=== PATIENT | female | born 1990 | race Caucasian/White ===

== ENCOUNTER 2016-11-30 20:24 | Inpatient (IN) | payer OTHER ==
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
--- NOTE | ~2016-11-30 | HP ---
Unit #: [id number] #: [id number] Patient: KAYLIE WOODALL [id number] [place] [address] [id number] I MR#: [id number] NAME: KAYLIE WOODALL ROOM: [facility] Age: 26 Sex: F Admission Date: 12/01/2016 : 1990 Attending Physician: Darrin Walker M.D. Admitting Physician: Darrin Walker M.D. Primary Care Physician: Primary Care Physician No HISTORY AND PHYSICAL HISTORY OF PRESENT ILLNESS Kaylie is a 26 year old admitted to [facility] with depression and verbalizing wanting to hurt herself. PAST MEDICAL HISTORY 1. IBS. 2. Obesity. PAST SURGICAL HISTORY Appendectomy. ALLERGIES No known drug allergies. SOCIAL HISTORY Smokes 1 pack per day. Denies alcohol and illicit drug use. FAMILY HISTORY Medically noncontributory. REVIEW OF SYSTEMS CONSTITUTIONAL: No fever or chills. HEENT: Denies any sore throat, ear pain or runny nose. CARDIOVASCULAR: Denies chest pain, irregular heart rhythm or palpitations. CHEST: Denies shortness of breath or cough. No hemoptysis. GASTROINTESTINAL: Denies nausea, vomiting, diarrhea or chronic constipation. ENDOCRINE: Denies history of increased thirst or urination. No recent significant weight loss or gain. GENITOURINARY: Denies dysuria, frequency, or hematuria. SKIN: Denies any rashes. HEMATOLOGIC: Denies history of increased bleeding or bruising. MUSCULOSKELETAL: Denies any hot, swollen joints. No generalized muscle pain. NEUROLOGIC: Denies problems with vision or speech. No frequent, severe headaches. No numbness, tingling or weakness in any extremities. Denies loss of bladder or bowel control. CURRENT MEDICATIONS 1. Minipress 1 mg q.h.s. 2. Zoloft 100 mg q.h.s. 3. Trileptal 300 mg t.i.d. 4. Motrin p.r.n. Unit #: [id number] #: [id number] Patient: KAYLIE WOODALL 5. Milk of Magnesia p.r.n. 6. Maalox p.r.n. 7. Tylenol p.r.n. PHYSICAL EXAMINATION GENERAL: Alert, obese, in no apparent distress. VITAL SIGNS: Blood pressure 100/50, heart rate 66, respirations 16, temperature 98.6. WEIGHT: 160. HEIGHT: 5 feet 4 inches. SKIN: Warm and dry without rash or lesion. HEENT: Normocephalic. TMs not viewed. Oral and nasal passages clear. Conjunctivae clear. PERRLA. EOMs intact. NECK: Supple without lymphadenopathy or thyromegaly. HEART: Regular rate and rhythm without murmur. LUNGS: Clear. ABDOMEN: Soft, nontender. : Not done. EXTREMITIES: No evidence of cyanosis, clubbing or edema. Moves all without focal deficit. NEUROLOGICAL: Grossly within normal limits. Cranial Nerves: II: Visual garland are intact. III, IV AND : Extraocular movements are intact. Pupils are equal, round and reactive to light. V: Facial sensation is grossly normal. VII: Facial movements and expression are normal. VIII: Auditory acuity grossly intact. IX, X: Uvula is midline. Phonation is normal. XI: Patient shrugs shoulders and turns head normally. XII: Tongue protrudes in the midline. Sensory and Motor Function: Sensory and motor sensation is grossly normal. Motor: moves all extremities well. Coordination: Gait is normal. Deep Tendon Reflexes: Intact. IMPRESSION Psychiatric admission. RECOMMENDATIONS PSYCHIATRIC: Per psychiatrist. MEDICAL: See no contraindications to participate in facility's activities. MEDICAL PROGNOSIS Good. MEDICAL CONDITION Stable. Dictated by... Aide Persaud P.A.-C. for Norbert Vu/eliana TD: 12/01/2016 19:00 JOB #: [id number] Unit #: [id number] #: [id number] Patient: KAYLIE WOODALL HISTORY AND PHYSICAL Page 1 of 1 X Aide Persaud HISTORY AND PHYSICAL
--- NOTE | ~2016-11-30 | DS ---
Unit #: [id number] #: [id number] Patient: HEBERT WOODALL [id number] [facility] [address] [place] [address] [id number] I MR#: [id number] NAME: HEBERT WOODALL ROOM: [facility] Age: 26 Sex: F Admission Date: 12/01/2016 : 1990 Discharge Date: 12/03/2016 Attending Physician: Darrin Walker M.D. Primary Care Physician: Primary Care Physician No DISCHARGE SUMMARY REASON FOR ADMISSION Hebert is a 26-year-old woman with a previous history of mood disorder, who reports increasing lability, hopelessness, irritability, and suicidal ideation with multiple plans. She was admitted for stabilization. DIAGNOSTIC STUDIES LABORATORY RESULTS: Please see hospital chart. HOSPITAL COURSE The patient was admitted and her Zoloft was increased to 100 mg at bedtime with the addition of Minipress for nightmares. Trileptal was continued unchanged. Her physical examination was unremarkable. She tolerated her medication with no significant adverse side effects and did participate in some psychotherapy groups and activities. She was referred to [facility] for increased access to psychotherapy, and she says that she felt safe at the time of discharge. DISCHARGE DIAGNOSES AXIS I: Major depression. AXIS II: Borderline personality traits. AXIS III: Irritable bowel syndrome and obesity. AXIS IV: AXIS V: DISCHARGE INSTRUCTIONS Follow up with Agatha. DISCHARGE MEDICATIONS Zoloft 100 mg daily for depression, Trileptal 300 mg b.i.d. for mood stability, and Minipress 1 mg bedtime for nightmares. CONDITION AT DISCHARGE Improved. PROGNOSIS Fair to good. DIET AND ACTIVITY Per primary care doctor. Dictated by... Unit #: [id number] #: [id number] Patient: HEBERT WOODALL Darrin Walker M.D. [facility]/modl TD: 12/18/2016 06:18 JOB #: [id number] DISCHARGE SUMMARY Page 1 of 1 X Darrin Walker MD DISCHARGE SUMMARY
[2016-12-01 09:37] LABS: BASOPHIL% 0.5 % (0-2.5); EOSINOPHIL% 0.1 % (0.0-7.0); HEMATOCRIT 36.1 % (35.0-45.0); HEMOGLOBIN 11.8 gm/dL (12.0-16.0); LYMPHOCYTE# 1.8 X10e3 (1.0-3.5); LYMPHOCYTE% 27.5 % (17.0-45.0); MEAN CORPUSCULAR HEMOGLOBIN 31.1 PG (28-34); MEAN CORPUSCULAR HGB CONC 32.7 g/dL (30-36); MEAN PLATELET VOLUME 8.2 FL (6.5-11.5); MONOCYTE# 0.6 X10e3 (0-1.0); MONOCYTE% 9.4 % (3.0-12.0); NEUTROPHIL% 62.5 % (40-75); PLATELET COUNT 243 X10e3 (140-420); RED CELL DISTRIBUTION WIDTH 13.9 % (11.0-15.5); WHITE BLOOD COUNT 6.4 X10e3 (4.0-10.5)
[2016-12-01 09:44] LABS: ALBUMIN SERUM 3.4 g/dL (3.5-5.0); BILIRUBIN,TOTAL 0.2 mg/dL (0.2-2.0); BUN/CREATININE RATIO 21.66; CALCIUM SERUM 8.7 mg/dL (8.4-10.2); CREATININE SERUM 0.6 mg/dL (0.6-1.4); GLOM FILT RATE Estimated 125.8 mL/min (>60); POTASSIUM 4.1 mmol/L (3.5-5.1); PROTEIN TOTAL SERUM 6.2 g/dL (6.0-8.3)
[2016-12-01 09:51] LABS: DIFF IND NO
== END 2016-12-03 12:50 | DRG 881 ==
LOC: P1E 12-01 03:10
PROVIDERS: Psychiatry & Neurology Psychiatry
DX: F32.9 Major depressive disorder, single episode, unspecified (principal)
CPT/HCPCS: 80053; 84703; 85025

== ENCOUNTER 2017-01-28 02:00 | Inpatient (IN) | payer OTHER ==
--- NOTE | ~2017-01-28 | HP ---
Unit #: [id number] #: [id number] Patient: KAYLIE WOODALL [id number] [place] [address] [id number] I MR#: [id number] NAME: KAYLIE WOODALL ROOM: [facility] Age: 26 Sex: F Admission Date: 01/28/2017 : 1990 Attending Physician: Darrin Walker M.D. Admitting Physician: Darrin Walker M.D. Primary Care Physician: Primary Care Physician No HISTORY AND PHYSICAL HISTORY OF PRESENT ILLNESS Kaylie is a 26 year old admitted to [address] [place] [address] with depression and verbalizing wanting to hurt herself. PAST MEDICAL HISTORY 1. IBS. 2. Obesity. PAST SURGICAL HISTORY Appendectomy. ALLERGIES No known drug allergies. SOCIAL HISTORY Smokes 1 pack per day. Denies alcohol and illicit drug use. FAMILY HISTORY Medically noncontributory. REVIEW OF SYSTEMS CONSTITUTIONAL: No fever or chills. HEENT: Denies any sore throat, ear pain or runny nose. CARDIOVASCULAR: Denies chest pain, irregular heart rhythm or palpitations. CHEST: Denies shortness of breath or cough. No hemoptysis. GASTROINTESTINAL: Denies nausea, vomiting, diarrhea or chronic constipation. ENDOCRINE: Denies history of increased thirst or urination. No recent significant weight loss or gain. GENITOURINARY: Denies dysuria, frequency, or hematuria. SKIN: Denies any rashes. HEMATOLOGIC: Denies history of increased bleeding or bruising. MUSCULOSKELETAL: Denies any hot, swollen joints. No generalized muscle pain. NEUROLOGIC: Denies problems with vision or speech. No frequent, severe headaches. No numbness, tingling or weakness in any extremities. Denies loss of bladder or bowel control. CURRENT MEDICATIONS 1. Minipress 1 mg q.h.s. 2. Trileptal 300 mg b.i.d. 3. Milk of Magnesia p.r.n. 4. Maalox p.r.n. Unit #: [id number] #: [id number] Patient: KAYLIE WOODALL 5. Tylenol p.r.n. 6. Nicotine patch 14 mg daily. 7. Zoloft 100 mg daily. PHYSICAL EXAMINATION GENERAL: Alert, obese, in no apparent distress. VITAL SIGNS: Blood pressure 100/62, heart rate 80, respirations 16, temperature 98.6. WEIGHT: 160. HEIGHT: 5 feet 4 inches. SKIN: Warm and dry without rash or lesion. HEENT: Normocephalic. TMs not viewed. Oral and nasal passages clear. Conjunctivae clear. PERRLA. EOMs intact. NECK: Supple without lymphadenopathy or thyromegaly. HEART: Regular rate and rhythm without murmur. LUNGS: Clear. ABDOMEN: Soft, nontender. : Not done. EXTREMITIES: No evidence of cyanosis, clubbing or edema. Moves all without focal deficit. NEUROLOGICAL: Grossly within normal limits. Cranial Nerves: II: Visual garland are intact. III, IV AND : Extraocular movements are intact. Pupils are equal, round and reactive to light. V: Facial sensation is grossly normal. VII: Facial movements and expression are normal. VIII: Auditory acuity grossly intact. IX, X: Uvula is midline. Phonation is normal. XI: Patient shrugs shoulders and turns head normally. XII: Tongue protrudes in the midline. Sensory and Motor Function: Sensory and motor sensation is grossly normal. Motor: moves all extremities well. Coordination: Gait is normal. Deep Tendon Reflexes: Intact. IMPRESSION Psychiatric admission. RECOMMENDATIONS PSYCHIATRIC: Per psychiatrist. MEDICAL: See no contraindication to participate in facility's activities. MEDICAL PROGNOSIS Good. MEDICAL CONDITION Stable. Dictated by... Aide Persaud P.A.-C. for Norbert Vu/eliana TD: 01/28/2017 18:59 JOB #: [id number] Unit #: [id number] #: [id number] Patient: KAYLIE WOODALL HISTORY AND PHYSICAL Page 1 of 1 X Aide Persaud HISTORY AND PHYSICAL
--- NOTE | ~2017-01-28 | PN ---
Unit #: [id number] #: [id number] Patient: KAYLIE WOODALL [id number] [facility] [address] [place] [address] [id number] I MR#: [id number] NAME: KAYLIE WOODALL ROOM: [facility] Age: 26 Sex: F Admission Date: 01/28/2017 : 1990 Attending Physician: Darrin Walker M.D. Admitting Physician: Darrin Walker M.D. Primary Care Physician: Primary Care Physician Pam COOLEY PROGRESS NOTES DATE 01/31/2017 DISCUSSION Kaylie is showing improvement today. She is tolerating increase Zoloft with no adverse side effects. She is alert and fully oriented. Memory and concentration are fair. Thought processes are goal directed with no active psychosis. She does continue to report some suicidal ideation but feels that she is better today. Liver functions were mildly elevated but otherwise laboratory studies are normal. ASSESSMENT PTSD, chronic. PLAN Continue current treatment plan anticipating discharge in the near future. Dictated by... Norbert Chapa/pasquale TD: 02/05/2017 02:25 JOB #: [id number] [facility] PROGRESS NOTES Page 1 of 1 X Darrin Walker MD PROGRESS NOTE
--- NOTE | ~2017-01-28 | DS ---
Unit #: [id number] #: [id number] Patient: KAYLIE WOODALL [id number] [facility] [address] [place] [address] [id number] I MR#: [id number] NAME: KAYLIE WOODALL ROOM: [facility] Age: 26 Sex: F Admission Date: 01/28/2017 : 1990 Discharge Date: 02/01/2017 Attending Physician: Darrin Walker M.D. Primary Care Physician: Primary Care Physician No DISCHARGE SUMMARY REASON FOR ADMISSION Kaylie is a 26-year-old woman, with a history of depression, PTSD, and some borderline personality traits. She reports that despite compliance with medication and psychotherapy at [facility] she has been increasingly depressed, hopeless, and upset over some recent events. She was unable to contract for safety and was admitted for stabilization. DIAGNOSTIC STUDIES Laboratory data, liver functions were mildly elevated less than twice normal otherwise laboratory studies were within normal limits. HOSPITAL COURSE Kaylie was admitted and placed on suicide precautions. Her Zoloft twas increased to 150 mg daily and other medications were continued. She participated appropriately in unit groups and activities, and her mood gradually improved. She had minimal psychosocial issues during the assessment and stated that she wished to follow up at [facility] as she had done before. On the date of discharge she was able to contract for safety outside of the hospital. DISCHARGE DIAGNOSES [place] I PTSD, chronic. Major depression. [place] II Borderline personality traits. [place] III IBS. Mild obesity. [place] IV [place] V INSTRUCTIONS TO PATIENT The patient is to follow up with [facility] and [facility]. DISCHARGE MEDICATIONS 1. Zoloft 150 mg daily for depression 2. Minipress 1 mg at bedtime for nightmares 3. Trileptal 300 mg twice daily for mood stability CONDITION AT DISCHARGE Improved. PROGNOSIS [id number]. Unit #: [id number] #: [id number] Patient: KAYLIE WOODALL DIET AND ACTIVITY Per primary care doctor. Dictated by... Darrin Walker M.D. ALBA/royer TD: 02/05/2017 07:48 JOB #: [id number] DISCHARGE SUMMARY Page 1 of 1 X Darrin Walker MD X DISCHARGE SUMMARY
--- NOTE | ~2017-01-28 | PA ---
Unit #: [id number] #: [id number] Patient: KAYLIE RAMEY [id number] [facility] [address] [place] [address] [id number] I MR#: [id number] NAME: KAYLIE RAMEY ROOM: [facility] Age: 26 Sex: F Admission Date: 01/28/2017 : 1990 Date of Assessment: Attending Physician: Darrin Walker M.D. Admitting Physician: Darrin Walker M.D. Primary Care Physician: Primary Care Physician No PSYCHIATRIC ASSESSMENT DATE OF SERVICE 01/29/2017. INFORMANTS The patient reliable; [facility], reliable; [facility], reliable. CHIEF COMPLAINT Suicidal ideation. HISTORY OF PRESENT ILLNESS Kaylie Ramey is a 26-year-old woman who reports increasing stress due to her brother's illness and recent of a friend. She had increasing suicidal ideation with a plan to hang herself and could not contract for safety outside of the hospital. She was admitted for stabilization. PAST PSYCHIATRIC HISTORY Two previous admissions to this facility for diagnosis of PTSD, major depression, and borderline personality traits. FAMILY PSYCHIATRIC HISTORY There is an extensive family history of psychiatric illness, but the patient could not be more specific. SOCIAL HISTORY The patient is single and lives with roommate. 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 PAST MEDICAL HISTORY History of obesity and irritable bowel syndrome. MEDICATIONS Please see MAR. ALLERGIES No known medication allergies. SUBSTANCE USE HISTORY None reported. MENTAL STATUS EXAMINATION Kaylie presented as a mildly disheveled woman, who appeared her stated age. She was cooperative with the examination. Her speech was spontaneous and easily understood. Musculoskeletal examination was calm. Unit #: [id number] #: [id number] Patient: KAYLIE RAMEY Her mood was depressed with a congruent affect. She was alert and fully oriented. Her memory and concentration were intact. Her thought processes were logical with no active psychosis. She reported ongoing suicidal ideation and could not contract for safety outside of the hospital. Her insight and judgment were fair. Her fund of knowledge and abstraction were fair. ASSETS AND LIABILITIES Assets; the patient knows local resources and has current caregivers. Liabilities; include recent decompensation. ADMITTING DIAGNOSES AXIS I: Posttraumatic stress disorder, chronic; major depressive disorder. AXIS II: Borderline personality traits. AXIS III: Obesity, irritable bowel syndrome. AXIS IV: AXIS V: PSYCHIATRIC PLAN The patient was admitted and placed on suicide precautions. Her home medications will be restarted with an increase in Zoloft to 150 mg daily. Baseline laboratory studies and physical examination will be ordered and reviewed. TREATMENT GOALS Resolution of SI, improvement in insight, and improvement in coping skills. DISCHARGE PLANNING Follow up with [facility]. ESTIMATED LENGTH OF STAY 5 days. Dictated by... Norbert Chapa/donald TD: 02/05/2017 15:50 JOB #: [id number] PSYCHIATRIC ASSESSMENT Page 1 of 1 X Darrin Walker MD X PSYCHIATRIC ASSESSMENT
[2017-01-29 12:31] LABS: BASOPHIL% 0.6 % (0-2.5); HEMATOCRIT 38.3 % (35.0-45.0); HEMOGLOBIN 12.6 gm/dL (12.0-16.0); LYMPHOCYTE# 1.4 X10e3 (1.0-3.5); LYMPHOCYTE% 24.6 % (17.0-45.0); MEAN CELL VOLUME 95.1 FL (83-96); MEAN CORPUSCULAR HEMOGLOBIN 31.3 PG (28-34); MEAN CORPUSCULAR HGB CONC 32.9 g/dL (30-36); MEAN PLATELET VOLUME 8.5 FL (6.5-11.5); MONOCYTE# 0.3 X10e3 (0-1.0); MONOCYTE% 5.8 % (3.0-12.0); NEUTROPHIL# 3.8 X10e3 (1.5-7.1); PLATELET COUNT 232 X10e3 (140-420); RED BLOOD COUNT 4.03 X10e (3.90-5.30); RED CELL DISTRIBUTION WIDTH 13.7 % (11.0-15.5); WHITE BLOOD COUNT 5.6 X10e3 (4.0-10.5)
[2017-01-29 12:32] LABS: DIFF IND NO
[2017-01-29 12:54] LABS: ALBUMIN SERUM 3.8 g/dL (3.5-5.0); BILIRUBIN,TOTAL 0.4 mg/dL (0.2-2.0); CALCIUM SERUM 9.4 mg/dL (8.4-10.2); CREATININE SERUM 0.6 mg/dL (0.6-1.4); GLOM FILT RATE Estimated 125.8 mL/min (>60); POTASSIUM 4.2 mmol/L (3.5-5.1); PROTEIN TOTAL SERUM 6.7 g/dL (6.0-8.3)
[2017-01-29 13:30] LABS: AMPHETAMINE NEG (NEG); BARBITURATES NEG (NEG); BENZODIAZEPINES NEG (NEG); COCAINE NEG (NEG); MARIJUANA NEG (NEG); OPIATES NEG (NEG); TRICYCLIC ANTIDEPRESSANTS NEG (NEG); U METHADONE NEG (NEG)
== END 2017-02-01 14:30 | disposition home or self-care (01) | DRG 882 ==
LOC: POF 10:54 → P2L 10:54 → POF 11:33 → P2L 12:01
PROVIDERS: Psychiatry & Neurology Psychiatry
DX: F43.12 Post-traumatic stress disorder, chronic (principal); R45.851 Suicidal ideations; K58.9 Irritable bowel syndrome, unspecified; F17.210 Nicotine dependence, cigarettes, uncomplicated
CPT/HCPCS: 80053; 80307; 84703; 85025